=== PATIENT | female | born 1955 | race Two or more races ===

== ENCOUNTER 2021-06-10 10:48 | Outpatient (CLI) | payer OTHER | END 2021-06-10 16:56 | disposition home or self-care (01) | LOC: LAB 10:48 | DX: Z20.822 Contact with and (suspected) exposure to COVID-19 (principal); J09.X2 Influenza due to identified novel influenza A virus with other respiratory manifestations ==

== ENCOUNTER 2021-08-08 08:00 | Outpatient (CLI) | payer OTHER | END 2021-08-08 08:30 | disposition home or self-care (01) | LOC: PPH VACUNA 08:00 | PROVIDERS: ATTEND Emergency Medicine Pediatric Emergency Medicine | DX: Z23 Encounter for immunization (principal) ==